=== PATIENT | female | born 1985 | race Two or more races ===

== ENCOUNTER 2025-01-28 14:40 | Emergency (ER) | payer OTHER ==
[~2025-01-28] VITALS: Ht 162.6 cm; Wt 78.9 kg
[2025-01-28] MEDS ORDERED: METRONIDAZOLE/SODIUM CHLORIDE 500 MG/100 ML PIGGYBACK IV ONE ×2 (16:45→16:50)
[2025-01-28] MEDS ORDERED: 0.9 % SODIUM CHLORIDE 1,000 ML IV SCH (16:45)
[2025-01-28 17:24] LABS: BASO % 0.6 % (0.1-1.2); EOS # 0.14 (0.04-0.54); EOS % 1.8 % (0.7-7.0); HEMATOCRIT 38.6 % (34.1-44.9); HEMOGLOBIN 12.6 g/dL (11.2-15.7); LYMPH # 2.56 (1.18-3.74); LYMPH % 32.4 % (19.3-53.1); MEAN CORPUSCULAR HEMOGLOBIN 28.6 pg (25.6-32.2); MONO # 1.12 (0.24-0.82); NEUT # 4.01 (1.56-6.13); NEUT % 50.7 % (34.0-71.1); PLATELET COUNT 301 K/uL (163-369); RED BLOOD COUNT 4.41 M/uL (3.93-5.22); RED CELL DISTRIBUTION WIDTH 12.5 % (11.6-14.4)
[2025-01-28 17:25] LABS: MONO % 14.2 % (4.7-12.5)
[2025-01-28 17:45] LABS: CALCIUM 9.2 mg/dL (8.5-10.1); CREATININE SERUM 0.98 mg/dL (0.55-1.02); GFR 63.51; POTASSIUM 3.98 mEq/L (3.5-5.1)
[2025-01-28] MEDS ORDERED: HYOSCYAMINE SULFATE 0.125 MG TAB.SUBL SL ONE (21:15)
== END 2025-01-28 21:55 | disposition home or self-care (01) ==
LOC: ER 15:20
PROVIDERS: Emergency Medicine
DX: A05.9 Bacterial foodborne intoxication, unspecified (principal); K52.9 Noninfective gastroenteritis and colitis, unspecified

== ENCOUNTER → 2025-08-07 | Emergency (ER) | payer OTHER ==
[~2025-08-07] VITALS: Ht 162.6 cm; Wt 78.9 kg
[~2025-08-07] MED LIST: BACTRIM DS TAB1 EACH PO; CEFTRIAXONE SODIUM 1,000 MG VIAL IM ONE; CEFTRIAXONE SODIUM 1,000 MG VIAL ONE; KETOROLAC TROMETHAMINE 60 MG VIAL IM ONE; NORFLEX100MG PO; PEPCID AC20 MG PO; TAMSULOSIN HCL 0.4 MG CAP PO ONE
[2025-08-07 18:42] VITALS: BP 111/76; O2SAT 100
[2025-08-07 19:26] LABS: URINE APPEARANCE Cloudy; URINE BILIRRUBIN Negative (NEGATIVE); URINE BLOOD Trace; URINE COLOR Yellow; URINE GLUCOSE Negative (NEGATIVE); URINE KETONE Negative (NEGATIVE); URINE LEUKOCYTE Small; URINE NITRATE Positive; URINE PROTEIN Negative (NEGATIVE); URINE UROBILINOGEN 0.2 E.U./dl
[2025-08-07 19:30] LABS: URINE EPITHELIAL CELLS 6.4 uL (0.0-38.8); URINE RBC 6.3 uL (0.0-20.8); URINE WBC 201.8 uL (0.0-23.2)
[2025-08-07 19:41] LABS: URINE BACTERIA > 9821.5 uL (0.0-1933); URINE CAST 1.02 uL (0.0-1.40)
[2025-08-07 20:45] LABS: BASO % 0.2 % (0.1-1.2); EOS # 0.16 (0.04-0.54); EOS % 1.2 % (0.7-7.0); LYMPH # 3.44 (1.18-3.74); LYMPH % 25.5 % (19.3-53.1); MEAN PLATELET VOLUME 8.90 fl (9.4-12.4); MONO # 0.70 (0.24-0.82); MONO % 5.2 % (4.7-12.5); NEUT # 9.11 (1.56-6.13); NEUT % 67.6 % (34.0-71.1); RED CELL DISTRIBUTION WIDTH 12.1 % (11.6-14.4)
[2025-08-07 21:52] LABS: ALT/SGPT 17 U/L (12-78); AST/SGOT 14 U/L (15-37); BILIRUBIN TOTAL 0.51 mg/dL (0.3-1.2); BUN CREA RATIO 14 (7.0-25.0); CREATININE SERUM 0.99 mg/dL (0.55-1.02); GFR 62.44; GLOBULINA 3.8 G/DL (2.4-3.5); GLUCOSE FASTING 139 mg/dL (65-100); OSMOLALITY SERUM 277 MOSM/KG (275-295)
[2025-08-07 21:53] LABS: HCG QUANTITATIVE < 1 mUI/mL (1-3)
== END | disposition home or self-care (01) ==
LOC: ER 18:37
PROVIDERS: General Practice
DX: R10.A2 Flank pain, left side (principal); N39.0 Urinary tract infection, site not specified